=== PATIENT | male | born 1965 | race African-American/Black ===

== ENCOUNTER 2016-10-31 11:18 | Emergency (ER) | payer MEDICAID ==
[~2016-10-31] VITALS: Ht 170.2 cm; Wt 82.0 kg
[~2016-10-31 11:18] MED LIST: ACET-2708; ASPI-1158; GABA300C; INSU100V3; LISI10TA5; METF10002; NPH,100V; SIMV20TA6
[2016-10-31] MEDS ORDERED: AZITHROMYCIN 500 MG TABLET PO ONE (12:00)
[2016-10-31] MEDS ORDERED: CEFTRIAXONE SODIUM 250 MG/VIAL IM ONE (12:00)
[2016-10-31] MEDS ORDERED: LIDOCAINE HCL 1% 20ML VIAL (Pyxis) INJ INFIL ONE (12:00)
[2016-10-31 12:12] VITALS: BP 144/79
[2016-10-31 12:25] LABS: CLARITY URINE TURBID (CLEAR); COLOR URINE YELLOW (YELLOW); KETONES URINE NEGATIVE (NEGATIVE); LEUKOCYTE ESTERASE URINE 2+ (NEGATIVE); NITRITE URINE NEGATIVE (NEGATIVE); OCCULT BLOOD URINE 2+ (NEGATIVE); PH URINE 8.5 (4.5-8.0); PROTEIN URINE 2+ (NEGATIVE); SPECIFIC GRAVITY URINE 1.033 (1.005-1.030)
== END 2016-10-31 13:22 | disposition home or self-care (01) ==
LOC: ER 12:58
DX: R30.0 Dysuria (principal); N39.0 Urinary tract infection, site not specified; R36.9 Urethral discharge, unspecified; E11.9 Type 2 diabetes mellitus without complications; I10 Essential (primary) hypertension; E78.00 Pure hypercholesterolemia, unspecified; Z20.2 Contact with and (suspected) exposure to infections with a predominantly sexual mode of transmission; Z79.4 Long term (current) use of insulin
CPT/HCPCS: 81001; 96372; 99283; J0696; J3490; Z7610